=== PATIENT | female | born 1970 | race Caucasian/White ===

== ENCOUNTER 2018-10-27 19:42 | Observation (INO) | payer BC ==
[~2018-10-27] VITALS: Ht 162.6 cm; Wt 85.5 kg
[2018-10-27 20:01] LABS: BASOPHILS PERCENT AUTO 0 % (0-2); EOSINOPHILS ABSOLUTE AUTO 0.02 K/mm3 (0.00-0.68); EOSINOPHILS PERCENT AUTO 0 % (0-6); Hematocrit 34.9 % (33.0-51.0); Hemoglobin 11.3 g/dL (11.5-16.0); IMMATURE GRAN ABSOLUTE AUTO 0.05 K/mm3 (0.00-0.10); IMMATURE GRAN PERCENT AUTO 1 % (0-1); LYMPHOCYTES ABSOLUTE AUTO 4.71 K/mm3 (0.84-5.20); LYMPHOCYTES PERCENT AUTO 67 % (21-46); MONOCYTES ABSOLUTE AUTO 0.16 K/mm3 (0.16-1.47); MONOCYTES PERCENT AUTO 2 % (4-13); Mean Corpuscular HGB 31.7 pg (26.0-34.0); Mean Corpuscular HGB Conc 32.4 g/dL (31.5-36.5); Mean Corpuscular Volume 98 fL (80-100); Mean Platelet Volume 10.4 fL (9.1-12.4); NEUTROPHILS ABSOLUTE AUTO 2.09 K/mm3 (1.96-9.15); NEUTROPHILS PERCENT AUTO 30 % (41-73); Platelet Count 343 K/mm3 (150-400); RDW Coefficient Variation 12.5 % (11.7-14.2); RDW Standard Deviation 45.5 fL (35.1-46.3); Red Blood Cell Count 3.56 M/mm3 (3.80-5.20); White Blood Cell Count 7.03 K/mm3 (4.00-11.30)
[2018-10-27] MEDS ORDERED: CELE100 PO (20:19)
[2018-10-27] MEDS ORDERED: ESCI20 PO (20:20)
[2018-10-27] MEDS ORDERED: FLONASE ALLERG9.9 ML (20:20)
[2018-10-27] MEDS ORDERED: TRAM50 PO (20:22)
[2018-10-27] MEDS ORDERED: EPIPEN0.3 MG/0.3 IM (20:22)
[2018-10-27 20:23] LABS: Albumin, Blood 2.9 g/dL (3.4-5.0); Bilirubin, Total 0.1 mg/dL (0.1-1.0); Bun/Creatinine Ratio 15.2 (12.0-20.0); Calcium, Blood 7.9 mg/dL (8.5-10.1); Creatinine, Blood 1.05 mg/dL (0.40-1.00); Globulin, Blood 2.8 g/dL (2.2-4.0); Potassium, Blood 3.4 mmol/L (3.5-5.5); Total Protein, Blood 5.7 g/dL (6.4-8.2)
[2018-10-27] MEDS ORDERED: FAMO20 PO (20:24)
[2018-10-27] MEDS ORDERED: FERRACTIV IRON1 EACH PO (20:25)
[2018-10-27] MEDS ORDERED: CALCIUM 600 +1 EA11 PO (20:25)
[2018-10-27] MEDS ORDERED: FOLBIC RF TABL1 EACH PO (20:26)
[2018-10-27] MEDS ORDERED: Women's Daily1 EACH PO (20:26)
[2018-10-27] MEDS ORDERED: ASPI81CH PO (20:26)
[2018-10-27] MEDS ORDERED: MODA200 PO (20:46)
[2018-10-27] MEDS ORDERED: HYDSUL200 PO (20:46)
[2018-10-27] MEDS ORDERED: TOPI100 PO (20:47)
--- NOTE | 2018-10-28 01:08 | NUR ---
ASSUMED CARE OF PATIENT AT [facility] 0025 FROM REILLY Santizo RN. PATIENT ARRIVED TO UNIT VIA STRETCHER; TRANSFER FROM ED TO PCU STRETCHER INDEPENDENTLY. PATIENT ALERT AND ORIENTED X4. PATIENT REPORTS SHE HAD SOME REACTION 4-5 YEARS AGO AND DENIED THAT SYMPTOMS REOCCURED. PATIENT DENIES PAIN, NUMBNESS, TINGLING, DIZZINESS AND NAUSEA. PATIENT REPORTS SHE IS GOING HOME TODAY. PATIENT IS FROM [place]; REPORTS ALLERGY AFTER EATING A VEGGIE BURGER AT HER MOTHERS HOUSE. ADMISSION COMPLETE. NS KCL INFUSING PER ORDER INTO PIV. NSR ON TELE; OXYGEN SATURATION ABOVE 90% ON ROOM AIR. PATIENT CURRENTLY RESTING IN BED; CALL LIGHT IN REACH; BED IN LOWEST POSISTION; WILL CONTINUE TO MONITOR AND ASSESS UNTIL END OF SHIFT.
--- NOTE | 2018-10-28 06:45 | NUR ---
PATIENT SLEPT ABOUT FIVE HOURS. VSS. IVF INFUSING PER ORDER. NO OTHER ACUTE CHANGE TO REPORT. WILL CONTINUE TO MONITOR AND ASSESS UNTIL END OF SHIFT.
--- NOTE | 2018-10-28 08:10 | NUR ---
INITIAL ASSESSMENT PATIENT RESTING QUIETLY IN BED UPON ENTERING ROOM. A AND O X 4, AFEBRILE. NO COMPLAINTS OF PAIN. SATTING WELL NO RA. LUNGS CLEAR T/O. DENIES COUGH OR SOB. IN SR, HR IN THE 60S. BP STABLE. INDEPENDENT IN ROOM. NS KCL 20 MEQ INFUSING AT 150 MLS/ HOUR. BED LOW, CALL LIGHT IN REACH. WILL CONTINUE TO MONITOR.
[2018-10-28] MEDS ORDERED: BENADRYL25 MG PO (09:42)
[2018-10-28] MEDS ORDERED: PRED20 PO (09:42)
--- NOTE | 2018-10-28 10:27 | NUR ---
PATIENT GIVEN DISCHARGE INFORMATION. PATIENT AGREES THAT SHE UNDERSTANDS INFORMATION. PATIENT LEFT WITH MOTHER. DISCHARGE COMPLETE.
== END 2018-10-28 10:26 | disposition home or self-care (01) ==
LOC: ER 19:42 → PCU 19:43
PROVIDERS: Emergency Medicine; ADMIT Internal Medicine
DX: T78.05XA Anaphylactic reaction due to tree nuts and seeds, initial encounter (principal); I95.9 Hypotension, unspecified; R73.9 Hyperglycemia, unspecified; Z91.018 Allergy to other foods; Z79.899 Other long term (current) drug therapy; Z79.82 Long term (current) use of aspirin
CPT/HCPCS: 71045; 80053; 85025; 93005; 93010; 96361; 96365; 96366; 96372-59; 96375; 99285-25; G0378; J0171; J1650; J2930; J3480; J7030